=== PATIENT | male | born 1965 ===

== ENCOUNTER 2019-01-11 08:20 | Emergency (ER) | payer OTHER ==
[2019-01-11 08:32] VITALS: TEMP 97.5
--- NOTE | 2019-01-11 09:31 | C.PDOC ---
History Of Present Illness 53 y/o male presents to ED complaining of right lower back pain, gradually worsening for the past 2 days, and radiating down to his right lateral leg. He describes the pain as pinching. Patient reports hes had back pain before and wears a back brace. He denies any urinary/bowel incontinence, fever, or vomiting. Time Seen by Provider: 01/11/19 08:36 Chief Complaint (Nursing): Back Pain History Per: Patient History/Exam Limitations: no limitations Onset/Duration Of Symptoms: Days Current Symptoms Are (Timing): Still Present Quality Of Discomfort: Other (Pinching) Past Medical History Reviewed: Historical Data, Nursing Documentation, Vital Signs Vital Signs: Last Vital Signs Temp 97.5 F L 01/11/19 08:26 Pulse 71 01/11/19 08:26 Resp 20 01/11/19 08:26 BP 152/87 H 01/11/19 08:26 Pulse Ox 100 01/11/19 08:26 - Medical History PMH: Back Problems Family History: States: No Known Family Hx - Social History Hx Alcohol Use: No Hx Substance Use: No - Immunization History Hx Tetanus Toxoid Vaccination: No Hx Influenza Vaccination: No Hx Pneumococcal Vaccination: No Review Of Systems Except As Marked, All Systems Reviewed And Found Negative. Constitutional: Negative for: Fever Gastrointestinal: Negative for: Vomiting Genitourinary: Negative for: Dysuria, Hematuria Musculoskeletal: Positive for: Back Pain Physical Exam - Physical Exam Additional Physical Exam Comments: Constitutional: No acute distress. Head: Normocephalic. Atraumatic. Eyes: PERRL. ENT: Moist mucous membranes. Neck: Supple. Cardiovascular: Regular rate. Radial pulse 2+ bilaterally. Chest: No tenderness. Respiratory: Clear to auscultation bilaterally. GI: Soft. Nontender. Nondistended. Back: No CVA tenderness. Musculoskeletal: No tenderness or swelling of extremities. Moving all extremities. Skin: No rash. Neurologic: Alert, no focal deficit. Some sensation to light touch. ED Course And Treatment O2 Sat by Pulse Oximetry: 100 (RA) Pulse Ox Interpretation: Normal Medical Decision Making Medical Decision Making: Impression: Back Pain Plan: --Toradol 30 mg IM Disposition - Disposition Referrals: [facility] [Outside] Disposition: HOME/ ROUTINE Disposition Time: 10:32 Condition: GOOD Prescriptions: Ibuprofen [Motrin] 600 mg PO Q6 #25 tab Methocarbamol [Robaxin-750] 1 tab PO Q8H #12 tablet Instructions: Low Back Pain in Adults Forms: [facility] (Kuwaiti), Gen Discharge Inst Gabonese - Clinical Impression Clinical Impression: Low back pain - Scribe Statement The provider has reviewed the documentation as recorded by the Scribe Hina Hauser Provider Attestation: All medical record entries made by the Scribe were at my direction and personally dictated by me. I have reviewed the chart and agree that the record accurately reflects my personal performance of the history, physical exam, medical decision making, and the department course for this patient. I have also personally directed, reviewed, and agree with the discharge instructions and disposition.
[2019-01-11 10:45] VITALS: BP 119/84; PULSE 65; RESP 18; O2SAT 99
== END 2019-01-11 10:45 | disposition home or self-care (01) ==
LOC: C.ER 08:20
DX: M54.5 Low back pain (principal)
CPT/HCPCS: 96372; 99283; J1885

== ENCOUNTER 2019-01-16 14:44 | Emergency (ER) | payer OTHER ==
[2019-01-16 14:52] VITALS: BMI 26.6
[2019-01-16 14:53] VITALS: BP 139/87; PULSE 77; RESP 18; TEMP 98.6; O2SAT 100
--- NOTE | 2019-01-16 19:35 | C.PDOC ---
History Of Present Illness 53 y/o male presents to the ER complaining of back pain which has been present for more than 1 week. Patient was evaluated for back pain in [facility] on 01/11/19.At the time, he was treated with Toradol IM and he was discharged with prescription for pain medications. He notes that he has been taking the pain medications with relief. However, he ran out of the medications a few days ago. He has not followed up with a PMD. Denies having dysuria, hematuria, bowel/bladder incontinence, and saddle anasthesia. Chief Complaint (Nursing): Back Pain History Per: Patient History/Exam Limitations: no limitations Onset/Duration Of Symptoms: Days Current Symptoms Are (Timing): Still Present Severity: Moderate Past Medical History Reviewed: Historical Data, Nursing Documentation, Vital Signs Vital Signs: Last Vital Signs Temp 98.6 F 01/16/19 14:53 Pulse 77 01/16/19 14:53 Resp 18 01/16/19 14:53 BP 139/87 01/16/19 14:53 Pulse Ox 100 01/16/19 14:53 - Medical History PMH: Back Problems Surgical History: No Surg Hx Family History: States: No Known Family Hx - Social History Hx Alcohol Use: Yes Hx Substance Use: No - Immunization History Hx Tetanus Toxoid Vaccination: No Hx Influenza Vaccination: No Hx Pneumococcal Vaccination: No Review Of Systems Except As Marked, All Systems Reviewed And Found Negative. Genitourinary: Negative for: Dysuria, Incontinence, Hematuria Musculoskeletal: Positive for: Back Pain Physical Exam - Physical Exam Appears: Non-toxic, No Acute Distress Skin: Normal Color, Warm, Dry Head: Atraumatic, Normacephalic Eye(s): bilateral: Normal Inspection Nose: Normal Oral Mucosa: Moist Neck: Supple Chest: Symmetrical Back: Other (diffuse lower back tenderness) Neurological/Psych: Oriented x3, Normal Speech, Normal Motor, Normal Sensation ED Course And Treatment O2 Sat by Pulse Oximetry: 100 (RA) Pulse Ox Interpretation: Normal Medical Decision Making Medical Decision Making: Patient has been discharged and instructed to follow up in clinic this week. Disposition - Disposition Referrals: [facility] [Outside] [facility] [Outside] Disposition: HOME/ ROUTINE Disposition Time: 15:25 Condition: GOOD Additional Instructions: NASH KIM, thank you for letting us take care of you today. Your provider was Isaak De La Rosa DO and you were treated for BACK PAIN. The emergency medical care you received today was directed at your acute symptoms. If you were prescribed any medication, please fill it and take as directed. It may take several days for your symptoms to resolve. Return to the Emergency Department if your symptoms worsen, do not improve, or if you have any other problems. Please contact your doctor or call one of the physicians/clinics you have been referred to that are listed on the Patient Visit Information form that is included in your discharge packet. Bring any paperwork you were given at discharge with you along with any medications you are taking to your follow up visit. Our treatment cannot replace ongoing medical care by a primary care provider outside of the emergency department. Thank you for allowing the [email or web address] team to be part of your care today. Follow up with the clinic this week for re-evaluation and further management. Prescriptions: Cyclobenzaprine [Cyclobenzaprine HCl] 10 mg PO Q8 PRN #20 tab PRN Reason: Muscle Spasm Ibuprofen [Motrin] 600 mg PO Q6 PRN #20 tab PRN Reason: Pain, Moderate (4-7) Instructions: Low Back Pain (DC) Forms: [employer] (Yakut) - Clinical Impression Clinical Impression: Low back pain - Scribe Statement The provider has reviewed the documentation as recorded by the Liza Richardson Provider Attestation: All medical record entries made by the Francoibmaria m were at my direction and personally dictated by me. I have reviewed the chart and agree that the record accurately reflects my personal performance of the history, physical exam, medical decision making, and the department course for this patient. I have also personally directed, reviewed, and agree with the discharge instructions and disposition.
== END 2019-01-16 15:29 | disposition home or self-care (01) ==
LOC: C.ER 14:44
DX: M54.5 Low back pain (principal)